=== PATIENT | female | born 1995 | race American Indian/Alaskan Native ===

== ENCOUNTER 2018-09-26 04:51 | Emergency (ER) | payer OTHER ==
[2018-09-26 05:01] VITALS: RESP 18; TEMP 98.3; O2SAT 100
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
--- NOTE | 2018-09-26 07:03 | ED PDOC ---
Physical Exam Vital Signs Reviewed: Yes Vital Signs Temp Pulse Resp BP Pulse Ox 09/26/18 04:56 98.3 F 108 H 18 129/93 H 100 Temperature: Afebrile Blood Pressure: Normal Pulse: Tachycardic Respiratory Rate: Normal Appearance: Positive for: Well-Appearing, Non-Toxic, Comfortable Pain Distress: None Mental Status: Positive for: Alert and Oriented X 3 Medical Decision Making ED Course and Treatment: 09/26/18 07:03 Patient signed out to me by Dr. Shaw. Patient is pending left mandible X- ray/reassessment/final disposition. 09/26/18 08:36 Discussed case with [facility] transfer center. Plan to transfer patient to [facility] emergency department under service of attending Emergency department physican Dr. Shaw. [facility] [place] case. - RAD Interpretation Narrative RAD Interpretations (Text): 09/26/18 08:13 Left Mandible X-Ray shows: FINDINGS: PA and left oblique views were obtained. There is an acute mildly displaced fracture in the the left ramus of the mandible with 1 cortex with medial and inferior displacement. Bone alignment is normal. The temporomandibular joints are normally located. There is moderate overlying soft tissue swelling. IMPRESSION: Acute mildly displaced fracture in the left ramus of the mandible. Moderate overlying soft tissue swelling. Radiology Orders: 09/26/18 05:36 MANDIBLE > 4 VIEWS [RAD] Stat Electric Spot Welder: Radiologist - Scribe Statement The provider has reviewed the documentation as recorded by the Scribe Vamsi Lee All medical record entries made by the Scribe were at my direction and personally dictated by me. I have reviewed the chart and agree that the record accurately reflects my personal performance of the history, physical exam, medical decision making, and the department course for this patient. I have also personally directed, reviewed, and agree with the discharge instructions and disposition. Disposition/Present on Arrival - Present on Arrival Any Indicators Present on Arrival: No History of DVT/PE: No History of Uncontrolled Diabetes: No Urinary Catheter: No History of Decub. Ulcer: No History Surgical Site Infection Following: None - Disposition Have Diagnosis and Disposition been Completed?: Yes Diagnosis: Mandible fracture Disposition: Trans to Other Acute Care Hosp Disposition Time: 08:18 Patient Plan: Transfer To Condition: [facility] Forms: [employer] ([place])
--- NOTE | 2018-09-26 08:16 | RAD ---
Date of service: 09/26/2018 PROCEDURE: Radiographs of the mandible INDICATION: Trauma COMPARISON: None. FINDINGS: PA and left oblique views were obtained. There is an acute mildly displaced fracture in the the left ramus of the mandible with 1 cortex with medial and inferior displacement. Bone alignment is normal. The temporomandibular joints are normally located. There is moderate overlying soft tissue swelling. IMPRESSION: Acute mildly displaced fracture in the left ramus of the mandible. Moderate overlying soft tissue swelling.
[2018-09-26 08:19] VITALS: BP 124/70; PULSE 86
== END 2018-09-26 09:01 | disposition short-term general hospital (02) ==
LOC: MERGE 04:51 → ED 04:51
DX: S02.642A Fracture of ramus of left mandible, initial encounter for closed fracture (principal); Y04.0XXA Assault by unarmed brawl or fight, initial encounter; Y92.009 Unspecified place in unspecified non-institutional (private) residence as the place of occurrence of the external cause